=== PATIENT | male | born 1955 | race Two or more races ===

== ENCOUNTER 2018-03-07 16:14 | Outpatient (CLI) | payer OTHER | END 2018-03-07 16:31 | disposition home or self-care (01) | LOC: RAD 16:14 | DX: M54.89 Other dorsalgia (principal) ==

== ENCOUNTER 2019-08-05 08:03 | Emergency (ER) | payer OTHER ==
[~2019-08-05] VITALS: Ht 175.3 cm; Wt 79.4 kg
[2019-08-05] MEDS ORDERED: SYNTHROID200 MCG (08:34)
[2019-08-05] MEDS ORDERED: AVALIDE 300-121 EACH (08:35)
[2019-08-05] MEDS ORDERED: UROXATRAL10 MG (08:35)
[2019-08-05] MEDS ORDERED: KETO10TA2 PO (11:56)
== END 2019-08-05 14:34 | disposition home or self-care (01) ==
LOC: ER 08:03
DX: R10.32 Left lower quadrant pain (principal); N20.1 Calculus of ureter

== ENCOUNTER 2019-08-07 08:47 | Outpatient (CLI) | payer OTHER ==
[~2019-08-07 08:47] MED LIST: AVALIDE 300-121 EACH; KETO10TA2 PO; SYNTHROID200 MCG; UROXATRAL10 MG
== END 2019-08-07 08:53 | disposition home or self-care (01) ==
LOC: RAD 08:47
PROVIDERS: ATTEND Specialist
DX: J18.0 Bronchopneumonia, unspecified organism (principal)

== ENCOUNTER 2019-08-22 11:50 | Outpatient (CLI) | payer OTHER | END 2019-08-22 11:52 | disposition home or self-care (01) | LOC: RAD 11:50 | PROVIDERS: ATTEND Specialist | DX: N20.0 Calculus of kidney (principal) ==

== ENCOUNTER 2019-09-20 11:36 | Outpatient (CLI) | payer OTHER | END 2019-09-20 11:47 | disposition home or self-care (01) | LOC: SONOGRAMA 11:36 | PROVIDERS: ATTEND Internal Medicine | DX: E89.0 Postprocedural hypothyroidism (principal); C73 Malignant neoplasm of thyroid gland ==

== ENCOUNTER 2020-01-02 10:27 | Emergency (ER) | payer OTHER ==
[~2020-01-02] VITALS: Ht 175.3 cm; Wt 79.4 kg
[2020-01-02] MEDS ORDERED: CARDURA1 MG PO (10:39)
== END 2020-01-02 15:34 | disposition home or self-care (01) ==
LOC: ER 10:27
DX: I16.0 Hypertensive urgency (principal); I10 Essential (primary) hypertension; Z03.818 Encounter for observation for suspected exposure to other biological agents ruled out

== ENCOUNTER 2020-04-07 13:54 | Outpatient (CLI) | payer OTHER ==
[~2020-04-07 13:54] MED LIST changes: +CARDURA1 MG PO
== END 2020-04-07 14:05 ==
LOC: SONOGRAMA 13:54 → MAMO-SONO 14:15
DX: E89.0 Postprocedural hypothyroidism (principal); E73.0 Congenital lactase deficiency; C73 Malignant neoplasm of thyroid gland

== ENCOUNTER → 2020-04-16 | Outpatient (CLI) | payer OTHER | END | disposition home or self-care (01) | LOC: RAD 16:05 | PROVIDERS: ATTEND Chiropractor | DX: M54.31 Sciatica, right side (principal); M54.2 Cervicalgia; M53.1 Cervicobrachial syndrome ==

== ENCOUNTER 2020-08-18 15:56 | Outpatient (CLI) | payer OTHER | END 2020-08-18 16:01 | disposition home or self-care (01) | LOC: RAD 15:56 | PROVIDERS: ATTEND Orthopaedic Surgery Sports Medicine | DX: M19.012 Primary osteoarthritis, left shoulder (principal) ==

== ENCOUNTER → 2021-04-29 | Outpatient (CLI) | payer OTHER | END | disposition home or self-care (01) | LOC: SONOGRAMA 11:37 | PROVIDERS: ATTEND Internal Medicine | DX: E89.0 Postprocedural hypothyroidism (principal); C73 Malignant neoplasm of thyroid gland ==

== ENCOUNTER 2022-01-06 10:43 | Outpatient (CLI) | payer OTHER | END 2022-01-06 10:48 | disposition home or self-care (01) | LOC: LAB 10:43 | PROVIDERS: ATTEND Internal Medicine Infectious Disease | DX: N41.0 Acute prostatitis (principal) ==

== ENCOUNTER 2022-07-04 13:20 | Outpatient (CLI) | payer OTHER | END 2022-07-04 13:46 | disposition home or self-care (01) | LOC: SONOGRAMA 13:20 | PROVIDERS: ATTEND Internal Medicine | DX: E89.0 Postprocedural hypothyroidism (principal); C73 Malignant neoplasm of thyroid gland ==

== ENCOUNTER 2022-12-06 08:19 | Outpatient (CLI) | payer OTHER | END 2022-12-06 08:26 | disposition home or self-care (01) | LOC: SONOGRAMA 08:19 | PROVIDERS: ATTEND Internal Medicine Gastroenterology | DX: R10.9 Unspecified abdominal pain (principal) ==

== ENCOUNTER 2023-02-27 09:49 | Emergency (ER) | payer OTHER ==
[~2023-02-27] VITALS: Ht 172.7 cm; Wt 79.4 kg
== END 2023-02-27 13:59 | disposition home or self-care (01) ==
LOC: ER 09:49
DX: M25.551 Pain in right hip (principal)

== ENCOUNTER 2023-04-05 14:13 | Outpatient (CLI) | payer OTHER | END 2023-04-05 14:25 | disposition home or self-care (01) | LOC: MRI 14:13 | PROVIDERS: ATTEND Internal Medicine | DX: I10 Essential (primary) hypertension (principal); E03.9 Hypothyroidism, unspecified; E55.9 Vitamin D deficiency, unspecified; E66.8 Other obesity; G47.30 Sleep apnea, unspecified; R06.81 Apnea, not elsewhere classified | CPT/HCPCS: 72148 ==

== ENCOUNTER 2023-08-28 08:38 | Outpatient (CLI) | payer OTHER | END 2023-08-28 08:42 | disposition home or self-care (01) | LOC: SONOGRAMA 08:38 | PROVIDERS: ATTEND Internal Medicine Nephrology | DX: N18.2 Chronic kidney disease, stage 2 (mild) (principal); I10 Essential (primary) hypertension ==

== ENCOUNTER 2024-07-23 13:02 | Outpatient (CLI) | payer OTHER | END 2024-07-23 13:09 | disposition home or self-care (01) | LOC: SONOGRAMA 13:02 | PROVIDERS: ATTEND Internal Medicine | DX: E89.0 Postprocedural hypothyroidism (principal); C73 Malignant neoplasm of thyroid gland ==